=== PATIENT | male | born 1955 | race Hispanic/Latino ===

== ENCOUNTER 2024-05-08 13:17 | Emergency (ER) | payer MEDICARE ==
[2024-05-08] MEDS ORDERED: AFRIN NASAL MIST 15 ML BOT ONE (13:39)
== END 2024-05-08 14:54 | disposition home or self-care (01) ==
LOC: CSHERS 13:17
DX: J06.9 Acute upper respiratory infection, unspecified (principal); R51.9 Headache, unspecified
CPT/HCPCS: 87428; 99284